=== PATIENT | male | born 1970 | race Native Hawaiian/Other Pacific Islander ===

== ENCOUNTER 2020-04-18 15:28 | Emergency (ER) | payer OTHER ==
[~2020-04-18] VITALS: Ht 180.3 cm; Wt 90.7 kg
[2020-04-18 15:44] VITALS: TEMP 100.1
[2020-04-18 16:12] LABS: PLATELET COUNT 55 K/uL (142-355)
[2020-04-18 16:18] LABS: POTASSIUM 3.4 mmol/L (3.6-5.2)
[2020-04-18 16:28] LABS: PARTIAL THROMBOPLASTIN TIME 23.6 SECONDS (24.5-33.6)
[2020-04-18 17:35] VITALS: BP 133/78
== END 2020-04-18 17:35 | disposition home or self-care (01) ==
LOC: ED 15:28
PROVIDERS: Hospitalist
DX: R10.84 Generalized abdominal pain (principal); D61.818 Other pancytopenia; R16.1 Splenomegaly, not elsewhere classified
CPT/HCPCS: 36415; 80048; 80320; 85007; 85027; 85610; 85730; 96360; 96361; 96375; 99284; J1885; J2405

== ENCOUNTER 2020-06-17 04:45 | Emergency (ER) | payer OTHER ==
[~2020-06-17] VITALS: Ht 180.3 cm; Wt 90.7 kg
[2020-06-17 05:02] VITALS: TEMP 97.7
[2020-06-17 05:43] LABS: PLATELET COUNT 68 K/uL (142-355)
[2020-06-17 05:52] LABS: POTASSIUM 3.9 mmol/L (3.6-5.2)
[2020-06-17 06:16] LABS: PARTIAL THROMBOPLASTIN TIME 23.9 SECONDS (24.5-33.6)
[2020-06-17 10:07] VITALS: BP 132/82
== END 2020-06-17 10:07 | disposition still patient (30) ==
LOC: ED 04:45
PROVIDERS: Family Medicine
DX: K92.2 Gastrointestinal hemorrhage, unspecified (principal); R10.84 Generalized abdominal pain; R18.8 Other ascites; R16.1 Splenomegaly, not elsewhere classified; K76.6 Portal hypertension
CPT/HCPCS: 36415; 80053; 80307; 80320; 81000; 82272; 85027; 85610; 85730; 96360; 96361; 96375; 96376; 99284; J2175; J2354; J2405; J3490; Q9963

== ENCOUNTER 2020-12-09 00:39 | Emergency (ER) | payer OTHER ==
[~2020-12-09] VITALS: Ht 180.3 cm; Wt 97.5 kg
[2020-12-09 02:23] LABS: PLATELET COUNT 60 K/uL (142-355)
[2020-12-09 02:31] LABS: POTASSIUM 3.5 mmol/L (3.6-5.2)
[2020-12-09 02:35] VITALS: BP 120/79; TEMP 98.3
== END 2020-12-09 02:35 | disposition home or self-care (01) ==
LOC: ED 00:39
PROVIDERS: Family Medicine
DX: K21.9 Gastro-esophageal reflux disease without esophagitis (principal); F15.980 Other stimulant use, unspecified with stimulant-induced anxiety disorder
CPT/HCPCS: 36415; 80053; 80307; 80320; 82150; 83690; 85008; 85027; 96374; 99284; J3490

== ENCOUNTER 2021-01-25 03:30 | Emergency (ER) | payer OTHER ==
[~2021-01-25] VITALS: Ht 180.3 cm; Wt 104.3 kg
[2021-01-25 03:38] VITALS: BP 145/85; TEMP 98.9
[2021-01-25 04:33] LABS: PLATELET COUNT 60 K/uL (142-355)
[2021-01-25 04:36] LABS: POTASSIUM 3.2 mmol/L (3.6-5.2)
[2021-01-25 05:11] LABS: PARTIAL THROMBOPLASTIN TIME 24.1 SECONDS (24.5-33.6)
== END 2021-01-25 04:43 | disposition still patient (30) ==
LOC: ED 03:30
PROVIDERS: Hospitalist
DX: K62.5 Hemorrhage of anus and rectum (principal); Z87.898 Personal history of other specified conditions; Z53.29 Procedure and treatment not carried out because of patient's decision for other reasons
CPT/HCPCS: 36415; 80053; 80320; 82272; 83690; 85027; 85610; 85730; 96360; 96375; 99284; J2405; J3490

== ENCOUNTER 2021-03-16 22:02 | Emergency (ER) | payer OTHER ==
[~2021-03-16] VITALS: Ht 180.3 cm; Wt 102.1 kg
[2021-03-16 22:50] VITALS: BP 135/77; TEMP 99.6
== END 2021-03-17 00:05 | disposition home or self-care (01) ==
LOC: ED 22:02
DX: J20.9 Acute bronchitis, unspecified (principal); Z20.822 Contact with and (suspected) exposure to COVID-19; F17.210 Nicotine dependence, cigarettes, uncomplicated
CPT/HCPCS: 87502; 87635; 87651; 99283; U0003

== ENCOUNTER 2021-03-18 10:19 | Emergency (ER) | payer OTHER ==
[~2021-03-18] VITALS: Ht 180.3 cm; Wt 99.8 kg
[2021-03-18 11:02] LABS: PLATELET COUNT 45 K/uL (142-355)
[2021-03-18 11:09] LABS: POTASSIUM 3.5 mmol/L (3.6-5.2)
[2021-03-18 12:35] VITALS: BP 132/79; TEMP 98.1
== END 2021-03-18 12:35 | disposition home or self-care (01) ==
LOC: ED 10:19
PROVIDERS: Emergency Medicine Emergency Medical Services
DX: K80.20 Calculus of gallbladder without cholecystitis without obstruction (principal); D72.818 Other decreased white blood cell count
CPT/HCPCS: 80053; 82150; 83690; 85007; 85027; 96360; 96375; 99284; J1885

== ENCOUNTER 2021-04-19 12:49 | Emergency (ER) | payer OTHER ==
[~2021-04-19] VITALS: Ht 180.3 cm; Wt 99.8 kg
[2021-04-19 12:54] VITALS: BP 138/97; TEMP 98.5
== END 2021-04-19 14:21 | disposition home or self-care (01) ==
LOC: ED 12:49
PROC: 2W3CX1Z Immobilization of Right Lower Arm using Splint (ICD-10-PCS; principal; 2021-04-19)
DX: M77.8 Other enthesopathies, not elsewhere classified (principal); L03.113 Cellulitis of right upper limb
CPT/HCPCS: 84550; 99282

== ENCOUNTER 2021-05-06 13:43 | Emergency (ER) | payer OTHER ==
[~2021-05-06] VITALS: Ht 180.3 cm; Wt 99.8 kg
[2021-05-06 13:44] VITALS: TEMP 98.5
[2021-05-06 14:27] LABS: POTASSIUM 4.4 mmol/L (3.6-5.2)
[2021-05-06 14:39] LABS: PLATELET COUNT 53 K/uL (142-355)
[2021-05-06 18:20] VITALS: BP 94/40
== END 2021-05-06 18:22 | disposition short-term general hospital (02) ==
LOC: ED 13:43
PROVIDERS: Emergency Medicine
DX: M62.82 Rhabdomyolysis (principal); N17.8 Other acute kidney failure; E87.1 Hypo-osmolality and hyponatremia; B19.20 Unspecified viral hepatitis C without hepatic coma; I95.89 Other hypotension; Z11.52 Encounter for screening for COVID-19
CPT/HCPCS: 80053; 80307; 81000; 82550; 83880; 84484; 85027; 85610; 85730; 87635; 93005; 96360; 96361; 96365; 96366; 96368; 96376; 99284; J1265; J1885; J3490; U0003